=== PATIENT | female | born 1970 | race Caucasian/White ===

== ENCOUNTER 2021-10-29 19:56 | Emergency (ER) | payer BC ==
[~2021-10-29] VITALS: Ht 157.5 cm; Wt 68.0 kg
--- NOTE | 2021-10-29 20:20 | NUR ---
BIBS. UNABLE TO URINATE SINCE 0600. DX UTI ON 10/25/21 ON KEFLEX ATB. PLACED COMFORTABLY IN BED. VITALS CHECKED.
--- NOTE | 2021-10-29 20:38 | NUR ---
URINE SAMPLES SENT TO LAB FROM [facility]
--- NOTE | 2021-10-29 20:45 | NUR ---
SEEN BY DR CHARLES AT BEDSIDE
[2021-10-29] MEDS ORDERED: SUMATRIPTAN SUCCINATE 6 MG/0.5 ML VIAL SQ ONE ×2 (21:00→21:07)
--- NOTE | 2021-10-29 22:12 | NUR ---
Patient discharged to home in stable condition. Written and verbal after care instructions given. Patient verbalizes understanding of instruction.
[2021-10-29 22:13] VITALS: BP 112/76
[2021-10-30 00:02] LABS: BILIRUBIN,URINE NEGATIVE (NEGATIVE); COLOR,URINE DARK YELLOW (YELLOW); LEUKOCYTE ESTERASE ,URINE NEGATIVE (NEGATIVE); NITRITE, URINE POSITIVE (NEGATIVE); PROTEIN,URINE NEGATIVE (NEGATIVE); UGLUCOSE NEGATIVE (NEGATIVE); UROBILINOGEN,URINE 0.2 EU/dL (0.2)
[2021-10-30 00:43] LABS: RBC,URINE NONE SEEN /HPF (0-2); WBC,URINE NONE SEEN /HPF (0-3)
[2021-10-30 00:44] LABS: BACTERIA,URINE None seen /HPF (None Seen)
[2021-10-30 00:53] LABS: SQUAMOUS EPITHELIAL CELL,UR None Seen /HPF (None Seen)
== END 2021-10-29 22:16 | disposition home or self-care (01) ==
LOC: ER 20:01
DX: R33.8 Other retention of urine (principal); Z87.440 Personal history of urinary (tract) infections; Z87.898 Personal history of other specified conditions; Z91.09 Other allergy status, other than to drugs and biological substances
CPT/HCPCS: 51702; 81001; 87086; 96372; 99284; J3030